=== PATIENT | female | born 1975 | race Caucasian/White ===

== ENCOUNTER 2016-10-01 11:15 | Emergency (ER) | payer BC, MEDICAID ==
[2016-10-01] MEDS ORDERED: Dexamethasone IV* 4 MG/ML 5 ML VIAL (20 MG) IVPB ONE (11:57)
[2016-10-01] MEDS ORDERED: Orphenadrine Citrate IV* 30 MG/ML 2 ML VIAL IV ONE (11:58)
[2016-10-01] MEDS ORDERED: Ketorolac INJ* 30 MG/ML 1 ML VIAL IV PUSH ONE (11:58)
[2016-10-01] MEDS ORDERED: oxyCODONE/Acetamin 5/325 MG* TAB PO ONE (11:58)
--- NOTE | 2016-10-01 12:02 | ED ---
Back Pain - HPI Summary HPI Summary: 41F presents with back pain for few days. She has history of scoliosis and has rods in her back. She states she takes tramadol chronically for her pain. She states tramadol normal controls her pain but it is not today. She has takes ibuprofen but her last dose was last night. She denies any injury. She denies any loss of bowel or bladder or saddle anaesthesia. She states the pain is in her normal location it is just more intense than normal. She states she get occasionally tingling into her legs that is unchanged from previous. - History of Current Complaint Chief Complaint: EDBackInjuryPain Stated Complaint: BACK PAIN Time Seen by Provider: 10/01/16 11:26 Pain Intensity: 10 - Allergies/Home Medications Allergies/Adverse Reactions: Allergies Allergy/AdvReac Type Severity Reaction Status Date / Time Adhesive Tape Allergy Rash Verified 02/05/15 17:36 Meperidine [From Demerol HCl] Allergy Vomiting Verified 02/05/15 17:36 PMH/Surg Hx/FS Hx/Imm Hx Endocrine/Hematology History: Denies: Hx Diabetes Cardiovascular History: Denies: Hx Congestive Heart Failure, Hx Hypertension Respiratory History: Reports: Hx Asthma History: Denies: Hx Renal Disease Musculoskeletal History: Reports: Hx Scoliosis - H/O SURGERY W/HARDWARE. - Surgical History Surgery Procedure, Year, and Place: SCOLIOSIS SX A YOUNG TEEN & MULT.SINCE Infectious Disease History: No Infectious Disease History: Denies: Traveled Outside the [place] in Last 30 Days - Family History Known Family History: Positive: Cardiac Disease - Social History Alcohol Use: Rare Substance Use Type: Reports: None, Prescribed Smoking Status (MU): Former Smoker Review of Systems Negative: Fever Negative: Chest Pain Negative: Shortness Of Breath Positive: Myalgia - bcak pain All Other Systems Reviewed And Are Negative: Yes Physical Exam Triage Information Reviewed: Yes Vital Signs On Initial Exam: Initial Vitals Temp Pulse Resp BP Pulse Ox 97.1 F 70 16 138/66 100 10/01/16 11:18 10/01/16 11:18 10/01/16 11:18 10/01/16 11:18 10/01/16 11:18 Vital Signs Reviewed: Yes Appearance: Positive: Pain Distress Skin: Positive: Warm, Dry Head/Face: Positive: Normal Head/Face Inspection Eyes: Positive: Normal, Conjunctiva Clear Respiratory/Lung Sounds: Positive: Clear to Auscultation, Breath Sounds Present Cardiovascular: Positive: Normal, RRR Musculoskeletal: Positive: Limited @ - back due to pain, Other - pos SLR left side, diffusely tender lower back, good pulses Diagnostics - Vital Signs Vital Signs Temp Pulse Resp BP Pulse Ox 10/01/16 11:22 97.1 F 70 16 138/66 100 10/01/16 11:18 97.1 F 70 16 138/66 100 - Laboratory Lab Statement: Any lab studies that have been ordered have been reviewed, and results considered in the medical decision making process. Re-Evaluation - Re-Evaluation First Eval Re-Evaluation Time: 12:26 Change: Improved Comment: patient pain improved to 6/10 Second Eval Re-Evaluation Time: 15:00 Change: Improved Comment: pain states is ready to go home Back Pain Course/Dx - Course Course Of Treatment: 41F presents with acute on chronic back pain that got worst two days ago. denies any injury but states may have overused back. uses tramadol for pain normally. has hx of scolosis. pain in same location as normal so did not get xray. gave toradol, methylprednisone, norflex and percocet and pain improved but patient states pain still bad. gave morphine and patient pain improved. will d/c with robaxin and prednisone. told to follow up with primary. patient understands and agrees with plan - Diagnoses Differential Diagnosis/HQI/PQRI: Positive: Herniated Disc, Strain, Sprain Provider Diagnoses: Back pain Discharge - Discharge Plan Condition: Good Disposition: HOME Prescriptions: Methocarbamol TAB* [Robaxin TAB*] 750 mg PO TID PRN #9 tab PRN Reason: Pain Methylprednisolone [Medrol Dosepak 4 MG*] 4 mg PO .SEE ALE INSTRUCTION #1 packet Patient Education Materials: Back Pain (ED) Forms: *Work Release Referrals: Colton BAUTISTA,Colton Rose [Primary Care Provider] - Additional Instructions: Follow directions on package for Medrol pack Take muscle relaxers three times a day for 3 days Use ibuprofen or Tylenol for pain every 6 hours and normal pain medication ice/heat area, move as much as possible Follow up with primary within 5 days Return to ED if unable to ambulate or develop any new or worsening symptoms
[2016-10-01] MEDS ORDERED: Morphine INJ* 4 MG/ML 1 ML SYRINGE IV ONE (14:05)
[2016-10-01] MEDS ORDERED: Ondansetron INJ* 2 MG/ML VIAL IV ONE (14:05)
[2016-10-01 15:17] VITALS: BP 116/70
== END 2016-10-01 15:15 | disposition home or self-care (01) ==
LOC: ED 11:15
DX: M54.9 Dorsalgia, unspecified (principal); Z87.891 Personal history of nicotine dependence
CPT/HCPCS: 96374; 96375; 99282; A9270-GY; J1885; J2270; J2360; J2405